=== PATIENT | male | born 1965 | race Caucasian/White ===

== ENCOUNTER 2018-11-17 14:11 | Emergency (ER) | payer OTHER ==
[~2018-11-17 14:11] MED LIST: LOR5 PO; LOSA-165 PO; OLME1TAB60 PO
--- NOTE | 2018-11-17 14:18 | ER Report ---
History and Physical Time Seen By MD: 14:16 HPI/ROS CHIEF COMPLAINT: High blood pressure HISTORY OF PRESENT ILLNESS: This is a 53-year-old male who presents to the emergency department for high blood pressure. Patient states that his medication was changed from name brand to generic, he didn't think this would cause any problems however over the last month he's noticed that his blood pressures slowly been increasing, over the last couple days he has had ringing in his ears, he's noted his diastolic to be over 100 multiple times contacted his primary care provider's office unfortunately they were out today, his pharmacy has reordered his medications for the name brand however unavailable until Tuesday. Patient denies visual changes, he states he's had a mild headache but nothing that ibuprofen or Tylenol would take care of. He denies nausea or vomiting. Denies chest pain or shortness of breath. No rashes. He states he is aware that his blood pressure is going up when he begins to have ringing in his ears. He states before he was started on blood pressure medications it was so high that his vision did change so he is aware when it extremely high. He also monitors his blood pressure at home. REVIEW OF SYSTEMS: Constitutional: No fever, no chills. Eyes: No discharge. ENT: As above. Cardiovascular: As above. Respiratory: No cough, no shortness of breath. Gastrointestinal: No abdominal pain, no vomiting. Genitourinary: No hematuria. Musculoskeletal: No back pain. Skin: No rashes. Neurological: No headache. 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 Reviewed Nurses Notes: Yes Constitutional Vital Sign - Last 24 Hours 6/2111/17/18 11/17/18 11/17/18 14:14 14:17 14:31 14:51 Temp 97.9 Pulse 73 68 67 Resp 16 20 28 B/P (MAP) 163/105 (124) 163/102 129/91 (104) Pulse Ox 93 97 96 O2 Delivery Room Air 11/17/18 11/17/18 11/17/18 11/17/18 15:00 15:11 15:20 15:31 Pulse 69 68 Resp 19 13 B/P (MAP) 128/84 (99) 138/96 (110) Pulse Ox 94 91 11/17/18 11/17/18 15:40 15:51 Pulse 66 Resp 12 B/P (MAP) 113/83 (93) Pulse Ox 93 Physical Exam General Appearance: The patient is alert, has no immediate need for airway protection and no signs of toxicity. Eyes: Pupils equal and round no pallor or injection. ENT, Mouth: Mucous membranes are moist. Respiratory: There are no retractions, lungs are clear to auscultation. Cardiovascular: Regular rate and rhythm. No murmurs, clicks or rubs. Gastrointestinal: Abdomen is soft and non tender, no masses, bowel sounds normal. Neurological: Alert and oriented 4. Moving all extremities. Following all commands. No focal neuro deficits. Skin: Warm and dry, no rashes. Musculoskeletal: Neck is supple non tender. Extremities are nontender, nonswollen and have full range of motion. DIFFERENTIAL DIAGNOSIS: After history and physical exam differential diagnosis was considered for hypertensive urgency, hypertensive crisis, stroke, myocardial infarction. Medical Decision Making ED Course/Re-evaluation Clinical Indication for ER IV: IV Access ED Course The patient was admitted to room. A history and physical obtained. Differential diagnoses were considered. Patient was otherwise asymptomatic today, was given 20 mg IV labetalol. Patient responded well, patient was primarily looking for the Benicar, to name brand however we only have the generic version in the hospital. The patient did respond well to the labetalol, I did give him a prescription for labetalol. An x-ray days, he was also sent home with 1-100 mg labetalol tablet should he begin to experience the same ringing in his ears, he will take this. His Benicar has been ordered by his pharmacy and should arrive Tuesday. Patient does understand that he is not to take the Benicar and the labetalol together. He will also follow up with his primary care provider this coming Tuesday at which time they will discuss alternatives to Benicar as the cost does seem somewhat prohibitive. Patient was agreeable with this plan of care and discharged home. Decision to Disposition Date: Nov 17, 2018 Decision to Disposition Time: 15:30 Depart Departure Latest Vital Signs Vital Signs Date Time Temp Pulse Resp B/P (MAP) Pulse Ox O2 Delivery O2 Flow Rate FiO2 11/17/18 15:51 66 12 93 11/17/18 15:40 113/83 (93) 11/17/18 14:17 97.9 Room Air Impression: Primary Impression: Hypertension Condition: Improved Disposition: HOME OR SELF-CARE Referrals: LIBAN EDMONDS (PCP) 5 Days New Scripts Labetalol Hcl (LABETALOL HCL) 100 Mg Tablet 100 MG PO BID, #6 TAB 0 Refills Prov: CYNTHIA PRICE-JEREMIAH 11/17/18 Patient Instructions: Hypertension (ED) Additional Instructions: Please stop taking the generic version of your Benicar. For the next 3 days you can take labetalol, 100 mg twice a day. Do not combine Benicar and Labatolol. Keep her follow-up appointment with your primary care provider this next Tuesday. You can consider changing medications however I would talk to your primary care provider. Be sure to drink plenty of water. Get plenty of rest. Return to ER for any concerns or worsening symptoms per Problem Qualifiers Primary Impression: Hypertension Hypertension type: essential hypertension Qualified Codes: I10 - Essential (primary) hypertension CYNTHIA PRICE- Nov 17, 2018 14:18
[2018-11-17] MEDS ORDERED: ALLO-119 PO (14:23)
[2018-11-17] MEDS ORDERED: LABETALOL HCL 25 MG/5 ML SYRINGE IVP ONE (14:40)
[2018-11-17] MEDS ORDERED: LABETALOL HCL 100 MG/20ML VIAL IVP ONE (14:50)
[2018-11-17] MEDS ORDERED: LABE100T2 PO (15:37)
[2018-11-17 15:40] VITALS: BP 113/83
[2018-11-17] MEDS ORDERED: LABETALOL HCL 100 MG TAB PO ONE (15:40)
== END 2018-11-17 16:16 | disposition home or self-care (01) ==
LOC: ER 14:18
DX: I10 Essential (primary) hypertension (principal)
CPT/HCPCS: 96374; 99283